=== PATIENT | female | born 1940 | race Caucasian/White ===

== ENCOUNTER 2017-06-06 22:00 | Inpatient (IN) ==
[2017-06-06] MEDS ORDERED: MORPHINE 2 MG/1 ML SYRINGE IV STA (22:51)
[2017-06-06] MEDS ORDERED: ONDANSETRON 4 MG/2 ML VIAL IV STA (22:51)
[2017-06-06] MEDS ORDERED: ONDANSETRON 4 MG/2 ML VIAL ONE (23:02)
[2017-06-06] MEDS ORDERED: MORPHINE 2 MG/1 ML SYRINGE ONE (23:02)
[2017-06-06 23:25] LABS: Basophils # 0.1 10*3/uL (0.0-0.2); Basophils % 0.7 % (0.0-0.8); Eosinophils # 0.2 10*3/uL (0.0-0.87); Eosinophils % 2.3 % (0.00-10.9); Hematocrit 34.6 VOL% (35.7-47.0); Hemoglobin 11.9 GM/DL (12.0-16.0); Immature Granulocytes % 0.6 %; Immature Granulocytes Absolute 0.04 #; Lymphocytes # 1.5 10*3/uL (1.4-4.0); Lymphocytes % 21.5 % (21.3-54.2); Mean Corpuscular HGB Conc 34.4 GM/DL (32-36); Mean Corpuscular Hemoglobin 33 PG (27-34); Mean Corpuscular Volume 96.1 FL (87-102); Mean Platelet Volume 9.5 FL (9.6-12.0); Monocytes # 0.6 10*3/uL (0.11-0.8); Monocytes % 8.4 % (1.7-12.7); Neutrophils # 4.7 10*3/uL (1.4-7.4); Neutrophils % 66.5 % (38.7-73.9); Platelet Count 217 T/CUMM (130-400); Red Cell Distribution Width 13.2 % (9.3-17.3)
[2017-06-06 23:37] LABS: Calcium 9.1 MG/DL (8.5-10.1); Osmolality,Calculated 274.8 MOS/KG (273-304); Potassium 3.6 MMOL/L (3.5-5.1)
[2017-06-07] MEDS ORDERED: MORPHINE 2 MG/1 ML SYRINGE ONE (00:14)
[2017-06-07] MEDS ORDERED: MORPHINE 2 MG/1 ML SYRINGE IV ONE (00:15)
[2017-06-07] MEDS ORDERED: MORPHINE 2 MG/1 ML SYRINGE IV PRN (00:53)
[2017-06-07] MEDS: DEXTROSE 5% NACL 0.45% 1,000 ML IV SCH ×2 (00:53→10:48)
[2017-06-07] MEDS ORDERED: PROMETHAZINE 25 MG/1 ML VIAL IM PRN (00:53)
[2017-06-07] MEDS: ONDANSETRON 4 MG/2 ML VIAL IV PRN ×3 (04:22→14:11)
[2017-06-07] MEDS: MORPHINE 2 MG/1 ML SYRINGE IV PRN ×3 (07:53→14:11)
[2017-06-07 07:57] LABS: Basophils # 0.1 10*3/uL (0.0-0.2); Basophils % 0.4 % (0.0-0.8); Eosinophils % 0.4 % (0.00-10.9); Hematocrit 31.8 VOL% (35.7-47.0); Immature Granulocytes % 0.5 %; Immature Granulocytes Absolute 0.06 #; Lymphocytes # 0.9 10*3/uL (1.4-4.0); Lymphocytes % 8.1 % (21.3-54.2); Mean Corpuscular HGB Conc 34.6 GM/DL (32-36); Mean Corpuscular Hemoglobin 33 PG (27-34); Mean Corpuscular Volume 96.1 FL (87-102); Mean Platelet Volume 9.8 FL (9.6-12.0); Monocytes # 0.8 10*3/uL (0.11-0.8); Neutrophils # 9.3 10*3/uL (1.4-7.4); Neutrophils % 83.6 % (38.7-73.9); Platelet Count 201 T/CUMM (130-400); Red Blood Count 3.31 MC/CUMM (3.8-5.5); Red Cell Distribution Width 13.4 % (9.3-17.3); White Blood Count 11.2 T/CUMM (4-12)
[2017-06-07 08:01] LABS: Apearance,Urine CLEAR (Clear); Bilirubin,Urine Negative (Negative); Blood, Urine Negative (Negative); Glucose,Urine (UA) Negative (Negative); Hyaline Casts,Urine 1 /LPF (0-3); Ketones,Urine 5 mg/dL (Negative); Mucus,Urine Occasional /LPF (Occasional); Nitrite,Urine Negative (Negative); Protein,Urine Negative; RBC,Urine 1 /HPF (0-4); Urine Color Yellow (Yellow); Urine Specific Gravity 1.011 (1.001-1.035); Urine Urobilinogen < 2.0 EU/DL (0.2-1.0); WBC,Urine 14 /HPF (0-6)
[2017-06-07 08:08] LABS: PT Patient Result 10.3 SECS
[2017-06-07 08:22] LABS: Osmolality,Calculated 271.1 MOS/KG (273-304); Potassium 3.8 MMOL/L (3.5-5.1)
[2017-06-07] MEDS ORDERED: PANTOPRAZOLE 40 MG TABLET PO ONE (08:36)
[2017-06-07] MEDS ORDERED: LACTATED RINGERS 1,000 ML IV SCH (09:00)
[2017-06-07] MEDS ORDERED: MORPHINE 10 MG/10 ML VIAL ONE (15:53)
[2017-06-07] MEDS ORDERED: ZALEPLON 5 MG CAPSULE PO PRN (16:18)
[2017-06-07] MEDS ORDERED: TRANEXAMIC ACID 1,000 MG/10 ML VIAL IV ONE (16:50)
[2017-06-07] MEDS ORDERED: BACITRACIN OINT 0.9 GM PACK TOP ONE (17:07)
[2017-06-07] MEDS ORDERED: PROPOFOL 200 MG/20 ML VIAL IV ONE (17:38)
[2017-06-07] MEDS ORDERED: fentaNYL 100 MCG/2 ML VIAL ONE (17:38)
[2017-06-07] MEDS ORDERED: KETAMINE 500 MG/10 ML VIAL ONE (17:39)
[2017-06-07] MEDS ORDERED: MIDAZOLAM 2 MG/2 ML VIAL ONE (17:39)
[2017-06-07] MEDS ORDERED: SODIUM CHLORIDE 0.9% 250 ML IV ONE (17:39)
[2017-06-07] MEDS ORDERED: MEPERIDINE 25 MG/1 ML VIAL ONE (17:55)
[2017-06-07] MEDS ORDERED: hydrOXYzine HCL 25 MG/1 ML VIAL IM PRN (18:29)
[2017-06-07] MEDS ORDERED: ONDANSETRON 4 MG/2 ML VIAL IV PRN (18:29)
[2017-06-07] MEDS ORDERED: diphenhydrAMINE 50 MG/1 ML VIAL IV PRN (18:29)
[2017-06-07] MEDS: KETOROLAC 15 MG/1 ML VIAL IV SCH (21:14)
[2017-06-07] MEDS: ACETAMINOPHEN 500 MG TABLET PO SCH (21:16)
[2017-06-07] MEDS: SIMVASTATIN 40 MG TABLET PO SCH (21:16)
[2017-06-07] MEDS: GABAPENTIN 400 MG CAPSULE PO SCH (21:16)
[2017-06-07] MEDS: DOCUSATE SODIUM 100 MG CAPSULE PO SCH (21:16)
[2017-06-07] MEDS: POTASSIUM CHLORIDE INJ 20 MEQ in LACTATED RINGERS 1,000 ML IV SCH (23:55)
[2017-06-08] MEDS: KETOROLAC 15 MG/1 ML VIAL IV SCH ×3 (01:08→12:35)
[2017-06-08] MEDS: ACETAMINOPHEN 500 MG TABLET PO SCH ×3 (05:28→14:34)
[2017-06-08] MEDS: POTASSIUM CHLORIDE INJ 20 MEQ in LACTATED RINGERS 1,000 ML IV SCH (05:29)
[2017-06-08 07:22] LABS: Basophils % 0.4 % (0.0-0.8); Eosinophils # 0.1 10*3/uL (0.0-0.87); Eosinophils % 1.4 % (0.00-10.9); Hematocrit 27.1 VOL% (35.7-47.0); Immature Granulocytes % 0.5 %; Immature Granulocytes Absolute 0.04 #; Lymphocytes % 12.1 % (21.3-54.2); Mean Corpuscular HGB Conc 33.2 GM/DL (32-36); Mean Corpuscular Hemoglobin 33 PG (27-34); Mean Corpuscular Volume 99.3 FL (87-102); Mean Platelet Volume 9.6 FL (9.6-12.0); Monocytes # 0.9 10*3/uL (0.11-0.8); Monocytes % 11.6 % (1.7-12.7); Neutrophils # 5.9 10*3/uL (1.4-7.4); Platelet Count 147 T/CUMM (130-400); Red Blood Count 2.73 MC/CUMM (3.8-5.5); Red Cell Distribution Width 13.5 % (9.3-17.3); White Blood Count 7.9 T/CUMM (4-12)
[2017-06-08] MEDS: GABAPENTIN 100 MG CAPSULE PO SCH (08:04)
[2017-06-08 08:11] LABS: Calcium 8.4 MG/DL (8.5-10.1); Magnesium 1.8 MG/DL (1.8-2.4); Osmolality,Calculated 275.5 MOS/KG (273-304); Potassium 4.5 MMOL/L (3.5-5.1)
[2017-06-08] MEDS: DOCUSATE SODIUM 100 MG CAPSULE PO SCH ×2 (09:11→20:40)
[2017-06-08] MEDS: PANTOPRAZOLE 40 MG TABLET PO SCH ×2 (09:12→20:39)
[2017-06-08] MEDS: FONDAPARINUX 2.5 MG/0.5 ML SYRINGE SUBCUT SCH (11:02)
[2017-06-08] MEDS ORDERED: KETOROLAC 30 MG/1 ML VIAL ONE (12:19)
[2017-06-08] MEDS: SIMVASTATIN 40 MG TABLET PO SCH (20:40)
[2017-06-08] MEDS: GABAPENTIN 400 MG CAPSULE PO SCH (20:43)
[2017-06-09] MEDS: PANTOPRAZOLE 40 MG TABLET PO SCH ×2 (08:37→21:13)
[2017-06-09] MEDS: DOCUSATE SODIUM 100 MG CAPSULE PO SCH ×2 (08:37→21:10)
[2017-06-09] MEDS: GABAPENTIN 100 MG CAPSULE PO SCH (08:37)
[2017-06-09] MEDS: ONDANSETRON 4 MG/2 ML VIAL IV PRN (08:42)
[2017-06-09] MEDS: CELECOXIB 200 MG CAPSULE PO SCH (08:42)
[2017-06-09] MEDS: FONDAPARINUX 2.5 MG/0.5 ML SYRINGE SUBCUT SCH (10:08)
[2017-06-09] MEDS: SIMVASTATIN 40 MG TABLET PO SCH (21:10)
[2017-06-09] MEDS: GABAPENTIN 400 MG CAPSULE PO SCH (21:10)
[2017-06-10] MEDS: DOCUSATE SODIUM 100 MG CAPSULE PO SCH ×2 (09:06→20:35)
[2017-06-10] MEDS: PANTOPRAZOLE 40 MG TABLET PO SCH ×2 (09:06→20:36)
[2017-06-10] MEDS: CELECOXIB 200 MG CAPSULE PO SCH (09:07)
[2017-06-10] MEDS: GABAPENTIN 100 MG CAPSULE PO SCH (09:07)
[2017-06-10] MEDS: ONDANSETRON 4 MG/2 ML VIAL IV PRN ×2 (09:09→20:34)
[2017-06-10] MEDS: MAGNESIUM HYDROXIDE SUSP 30 ML UDCUP PO PRN ×2 (10:47→15:36)
[2017-06-10] MEDS: FONDAPARINUX 2.5 MG/0.5 ML SYRINGE SUBCUT SCH (11:58)
[2017-06-10] MEDS ORDERED: BISACODYL 10 MG SUPP RECTAL ONE (14:11)
[2017-06-10] MEDS: GABAPENTIN 400 MG CAPSULE PO SCH (20:35)
[2017-06-10] MEDS: SIMVASTATIN 40 MG TABLET PO SCH (20:35)
[2017-06-11] MEDS: PANTOPRAZOLE 40 MG TABLET PO SCH (08:58)
[2017-06-11] MEDS: CELECOXIB 200 MG CAPSULE PO SCH (08:58)
[2017-06-11] MEDS: DOCUSATE SODIUM 100 MG CAPSULE PO SCH (08:58)
[2017-06-11] MEDS: GABAPENTIN 100 MG CAPSULE PO SCH (08:58)
[2017-06-11] MEDS ORDERED: ONDANSETRON 4 MG/2 ML VIAL IM PRN (09:37)
[2017-06-11 12:20] VITALS: BP 118/69
[2017-06-11] MEDS: FONDAPARINUX 2.5 MG/0.5 ML SYRINGE SUBCUT SCH (14:23)
== END 2017-06-11 14:55 | DRG 481 ==
LOC: EDUNIT# → EDBD → N.ED 22:00 → N.3E 23:23
PROVIDERS: ADMIT Orthopaedic Surgery; ATTEND Orthopaedic Surgery

== ENCOUNTER 2021-02-03 13:25 | Observation (INO) ==
[2021-02-03 14:12] LABS: Basophils # 0.1 10*3/uL (0.0-0.2); Basophils % 0.9 % (0.0-0.8); Eosinophils % 0.4 % (0.00-10.9); Hematocrit 35.8 VOL% (35.7-47.0); Hemoglobin 11.9 GM/DL (12.0-16.0); Immature Granulocytes % 0.8 %; Immature Granulocytes Absolute 0.06 #; Lymphocytes # 1.1 10*3/uL (1.4-4.0); Lymphocytes % 13.9 % (21.3-54.2); Mean Corpuscular HGB Conc 33.2 GM/DL (32-36); Monocytes % 8.3 % (1.7-12.7); Neutrophils % 75.7 % (38.7-73.9); Platelet Count 299 T/CUMM (130-400); Red Blood Count 3.73 MC/CUMM (3.8-5.5); Red Cell Distribution Width 13.4 % (9.3-17.3)
[2021-02-03 14:35] LABS: Albumin 3.8 G/DL (3.4-5.0); Bilirubin,Total 0.4 MG/DL (0.2-1.0); Calcium 8.9 MG/DL (8.5-10.1); Osmolality,Calculated 261.7 MOS/KG (273-304); Potassium 3.9 MMOL/L (3.5-5.1); Total Protein 7.4 G/DL (6.4-8.2)
[2021-02-03] MEDS ORDERED: ASPIRIN 325 MG TABLET PO STA (16:32)
[2021-02-03] MEDS ORDERED: SODIUM CHLORIDE 0.9% 500 ML IV STA (16:32)
[2021-02-03 17:26] LABS: INR 0.9; PT Patient Result 10.7 SECS (10.5-12.0); Partial Thromboplastin Time 29.1 SECS (23.9-33.8)
[2021-02-03] MEDS ORDERED: ONDANSETRON 4 MG/2 ML VIAL IV ONE (17:27)
[2021-02-03] MEDS ORDERED: ONDANSETRON 4 MG/2 ML VIAL IV PRN (18:04)
[2021-02-03] MEDS ORDERED: DEXTROSE 50% 25 GM/50 ML VIAL IV PRN (18:04)
[2021-02-03] MEDS ORDERED: ALUM/MAG/SIMETH/LIDO VISC 1:1 30 ML BOTTLE PO PRN (18:04)
[2021-02-03] MEDS ORDERED: GLUCAGON 1 MG VIAL IM PRN (18:04)
[2021-02-03] MEDS ORDERED: MORPHINE 4 MG/1 ML VIAL IV PRN (18:04)
[2021-02-03] MEDS ORDERED: ENOXAPARIN 40 MG/0.4 ML SYRINGE SUBCUT SCH (18:30)
[2021-02-03] MEDS ORDERED: GABAPENTIN 300 MG CAPSULE PO SCH (21:00)
[2021-02-03] MEDS ORDERED: SIMVASTATIN 40 MG TABLET PO SCH (21:00)
[2021-02-03] MEDS ORDERED: hydrALAZINE 20 MG/1 ML VIAL IV PRN (21:17)
[2021-02-04 05:11] LABS: Basophils # 0.1 10*3/uL (0.0-0.2); Eosinophils # 0.1 10*3/uL (0.0-0.87); Eosinophils % 2.3 % (0.00-10.9); Hematocrit 34.1 VOL% (35.7-47.0); Hemoglobin 11.2 GM/DL (12.0-16.0); Immature Granulocytes % 0.7 %; Immature Granulocytes Absolute 0.04 #; Lymphocytes # 1.9 10*3/uL (1.4-4.0); Lymphocytes % 31.3 % (21.3-54.2); Mean Corpuscular HGB Conc 32.8 GM/DL (32-36); Mean Corpuscular Volume 97.4 FL (87-102); Mean Platelet Volume 9.4 FL (9.6-12.0); Monocytes % 10.7 % (1.7-12.7); Platelet Count 267 T/CUMM (130-400); Red Cell Distribution Width 13.6 % (9.3-17.3)
[2021-02-04 05:35] LABS: Eosinophils 1 % (0-10); Lymphocytes 26 % (20-55); Platelet Estimate Normal; Segmented Neutrophils 62 % (50-85); Total Cells Counted 100
[2021-02-04 05:36] LABS: Calcium 8.9 MG/DL (8.5-10.1); Osmolality,Calculated 265.2 MOS/KG (273-304)
[2021-02-04 05:59] LABS: Risk Ratio 2.83; Thyroid Stimulating Hormone 2.09 uIU/ml (0.358-3.74)
[2021-02-04] MEDS ORDERED: ACETAMINOPHEN 325 MG TABLET PO PRN (08:49)
[2021-02-04] MEDS ORDERED: PANTOPRAZOLE 40 MG TABLET PO SCH (09:00)
[2021-02-04] MEDS ORDERED: ASPIRIN CHEW 81 MG TABLET PO SCH (09:00)
[2021-02-04] MEDS ORDERED: FLUTICASONE 50 MCG NASAL SPRAY 16 GM BOTTLE BOTH NARES SCH (09:00)
[2021-02-04] MEDS: GABAPENTIN 100 MG CAPSULE PO SCH ×2 (09:22→13:07)
[2021-02-04 12:09] VITALS: BP 126/73
== END 2021-02-04 14:03 | disposition home or self-care (01) ==
LOC: N.EDINP 13:25 → N.ED 13:25 → N.TELEN 19:59
PROVIDERS: ADMIT Internal Medicine; ATTEND Internal Medicine